=== PATIENT | female | born 1985 | race Two or more races ===

== ENCOUNTER 2023-01-23 14:21 | Emergency (ER) | payer MEDICAID ==
[~2023-01-23] VITALS: Ht 167.6 cm; Wt 92.7 kg
[2023-01-23 15:15] VITALS: BP 129/92
[2023-01-23] MEDS ORDERED: DIPH25CA66 PO (15:28)
[2023-01-23] MEDS ORDERED: HYD25TP TOP (15:28)
[2023-01-23] MEDS ORDERED: PRED20TA2 PO (15:29)
[2023-01-23] MEDS ORDERED: diphenhdrAMINE HCL 25 MG CAP PO ONE (15:30)
[2023-01-23] MEDS ORDERED: DexAMETHasone SOD PHOS 4 MG/1ML SDV INJ IM ONE (15:30)
== END 2023-01-23 15:41 | disposition home or self-care (01) ==
LOC: ER 14:21
DX: L25.9 Unspecified contact dermatitis, unspecified cause (principal)
CPT/HCPCS: 96372; 99283; J1100